=== PATIENT | male | born 2005 | race Caucasian/White ===

== ENCOUNTER 2024-10-12 17:29 | Emergency (ER) | payer OTHER, SELFPAY ==
[2024-10-12 17:36] VITALS: BP 134/71
--- NOTE | 2024-10-12 18:46 | ED.GENMED ---
History of Present Illness
General
Chief Complaint: Skin Surface Trauma
Source: patient
Exam Limitations: none
Time Seen by Provider: 10/12/24 18:02
History of Present Illness
History of Present Illness:
19-year-old male presents with laceration to right ring finger he sustained today on a sharp piece of glass. He was initially seen at the urgent care who thought that he was having trouble flexing his finger and they sent him here. Tetanus vaccine
was updated in July. Does have a history of special needs and is accompanied by his mother. No other complaints
Phy Exam
Physical Exam
Physical Exam:
General: Well-appearing male no acute distress
Skin: Half centimeter laceration transverse direction volar aspect overlying right proximal phalanx
Musculoskeletal exam: Patient is unable to flex at the DIP or PIP joints.
Neurologic: Good sensation to the right ring finger
Course
Vital Signs
Initial and Last Documented VS:
Initial Vital Signs
Temp Pulse Resp BP Pulse Ox
99.1 F 67 16 134/71 98
10/12/24 17:36 10/12/24 17:36 10/12/24 17:36 10/12/24 17:36 10/12/24 17:36
Last Documented Vital Signs
Temp Pulse Resp BP Pulse Ox
99.1 F 67 16 134/71 98
10/12/24 17:36 10/12/24 17:36 10/12/24 17:36 10/12/24 17:36 10/12/24 17:36
MDM/Problems Addressed
Differential Diagnosis Includes:
Laceration right ring finger concerning for possible flexor tendon laceration. Picture of the wound was taken and the description of the wound was sent to the orthopedic doctor on-call who recommended closing the skin immobilizing and having him
follow-up for definitive treatment. Mother okay with the plan. The wound was copiously irrigated with saline anesthetized in a local fashion using 1% plain lidocaine and closed using 5-0 Prolene suture. Gauze dressing was applied with a splint
wound care instructions were given. Stable for discharge.
*Pulse Oximetry
SaO2: 98
Oxygen Mode of Delivery: Room air
Patient hypoxic: no
*Critical Care Note
Total Time (30-74mins, 75-104mins- exclusive of procedures): Not Applicable
ED Attending Note
-
Portions of this chart may have been created with voice recognition software.� Occasional wrong word or��sound alike� substitutions may have occurred due to the inherent limitations of voice recognition software.
Discharge Plan
Departure
Patient Disposition: Home (Routine Discharge)
Date of Disposition: 10/12/24
Time of Disposition: 18:47
Patient with high blood pressure during this ER visit?: No
Discharge Problem:
Laceration, Flexor tendon laceration, finger, open wound
Instructions: Wound Care (DC)
Referrals:
Cece Adler MD [Family Provider, Pediatrics]
Jose Preston MD [Active, Orthopedics]
Activity Restrictions/Additional Instructions:
Keep dressing on. Follow-up with Dr. Preston for next available appointment for further evaluation. As discussed there is concern for a flexor tendon injury of the finger.
Interventions
Interventions:
*Risk Screen - Suicide Last Done: 10/12/24 17:36
*Neglect/Abuse Screening Last Done: 10/12/24 17:36
ED-Skin Assessment Last Done: 10/12/24 18:00
Discharge Date and Time
Print Language: PERSIAN
== END 2024-10-12 19:06 | disposition home or self-care (01) ==
LOC: EMR 17:29
PROVIDERS: EMERGENCY PHYSICIAN Student in an Organized Health Care Education/Training Program; FAMILY PHYSICIAN Pediatrics
DX: S61.214A Laceration without foreign body of right ring finger without damage to nail, initial encounter (principal); W25.XXXA Contact with sharp glass, initial encounter
CPT/HCPCS: 99282; 12001

== ENCOUNTER 2024-10-24 05:57 | Day surgery (SDC) | payer OTHER, SELFPAY ==
[2024-10-24] VITALS (8 sets, daily range): BP systolic 104–144; BP diastolic 55–81; BMI 24.3
[2024-10-24] MEDS: TYLENOL 1000 MG PO (06:24)
[2024-10-24] MEDS: CELEBREX 200 MG PO (06:24)
[2024-10-24] MEDS: NORMOSOL-R/PLASMALYTE-A 1000 IV (06:32)
--- NOTE | 2024-10-24 06:43 | PTCARENOTE ---
Patient has special needs and mom is at the bedside. Patients IV inserted without complications. Will monitor patient.
== END 2024-10-24 10:11 | disposition home or self-care (01) ==
LOC: SDS 05:57
PROVIDERS: ATTENDING PHYSICIAN Orthopaedic Surgery; FAMILY PHYSICIAN Pediatrics
DX: S66.124A Laceration of flexor muscle, fascia and tendon of right ring finger at wrist and hand level, initial encounter (principal); S61.214A Laceration without foreign body of right ring finger without damage to nail, initial encounter; W25.XXXA Contact with sharp glass, initial encounter
CPT/HCPCS: 26356 ×2